=== PATIENT | male | born 1950 | race African-American/Black ===

== ENCOUNTER 2024-09-23 07:09 | Day surgery (SDC) | payer BC ==
[2024-09-20 14:20] VITALS: BMI 24.0
[2024-09-23 12:33] VITALS: TEMP 98.2
[2024-09-23 13:08] VITALS: RESP 16
[2024-09-23 13:12] VITALS: BP 142/85; PULSE 57
== END 2024-09-23 13:27 | disposition home or self-care (01) ==
LOC: JASU-ENDO 07:09
PROVIDERS: ATTEND Internal Medicine Gastroenterology
PROC: 0DJD8ZZ Inspection of Lower Intestinal Tract, Via Natural or Artificial Opening Endoscopic (ICD-10-PCS; principal; 2024-09-23 10:45)
DX: Z12.11 Encounter for screening for malignant neoplasm of colon (principal); K64.8 Other hemorrhoids; K57.30 Diverticulosis of large intestine without perforation or abscess without bleeding; Z85.038 Personal history of other malignant neoplasm of large intestine; Z98.0 Intestinal bypass and anastomosis status; I10 Essential (primary) hypertension; Z86.39 Personal history of other endocrine, nutritional and metabolic disease